=== PATIENT | female | born 1960 | race Caucasian/White ===

== ENCOUNTER → 2017-02-24 | Outpatient (CLI) | payer OTHER | LOC: EMI 02-10 18:15 | DX: M54.2 Cervicalgia (principal); M54.10 Radiculopathy, site unspecified; M46.1 Sacroiliitis, not elsewhere classified; E78.5 Hyperlipidemia, unspecified; F41.9 Anxiety disorder, unspecified; R53.83 Other fatigue; R53.81 Other malaise; R51 Headache; E03.9 Hypothyroidism, unspecified; M50.222 Other cervical disc displacement at C5-C6 level | CPT/HCPCS: 72141 ==

== ENCOUNTER → 2017-02-28 | Outpatient (CLI) | payer OTHER | LOC: KOH-I 11:21 | DX: M25.562 Pain in left knee (principal) | CPT/HCPCS: 73564 ==

== ENCOUNTER 2021-05-07 04:16 | Emergency (ER) | payer OTHER ==
[~2021-05-07 04:16] MED LIST: ASPIRIN CHEWABL81 MG PO; NITROSTAT0.4 MG SL; NORCO 5-325 TA1 EACH PO
[2021-05-07 05:25] LABS: HEMOGLOBIN 13.1 gm/dl (12.3-15.3); RED BLOOD COUNT 4.23 M/UL (4.00-5.10); WHITE BLOOD COUNT 7.4 K/UL (4.5-11.0)
[2021-05-07] MEDS ORDERED: PREDNISONE20 MG PO (08:32)
== END 2021-05-07 08:45 | disposition home or self-care (01) ==
LOC: ER1 04:16
PROVIDERS: Internal Medicine
DX: M50.11 Cervical disc disorder with radiculopathy, high cervical region (principal); N28.9 Disorder of kidney and ureter, unspecified; E78.5 Hyperlipidemia, unspecified; Z88.5 Allergy status to narcotic agent
CPT/HCPCS: 71046; 72125; 80053; 84484; 85025; 93005; 96374; 96375; 99284; J2270; J2405; J2930